=== PATIENT | female | born 2000 | race Caucasian/White ===

== ENCOUNTER 2023-12-16 12:47 | Emergency (ER) | payer OTHER, BC, SELFPAY ==
[2023-12-16 13:06] VITALS: BP 148/79; PULSE 102; RESP 16; TEMP 37; O2SAT 100; BMI 21.3
--- NOTE | 2023-12-16 13:07 | ED.ANIMALBIT ---
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 She states she had exposure to a known rabies positive count on Wednesday the . The CT was sent for testing on Wednesday, they found the results to be positive on Wednesday. She has had several rabies vaccine series and is here for the days 0 shot per the marketing education teacher recommendations. She denies any bites or scratches but she was handling the normal. She states the animal had neurologic symptoms of rabies MD complaint: possible animal exposure Onset (ago): day(s) Animal: cat Description of animal: appeared ill Mechanism: none known Context: other (Caring for the animal) Associated symptoms: none Related Data Patient tetanus UTD: Yes Allergies Allergy/AdvReac Type Severity Reaction Status Date / Time amoxicillin Allergy Hives Verified 12/16/23 13:08 doxycycline Allergy Facial Verified 12/16/23 13:08 Swelling Review of Systems Review of Systems: Yes all other systems are reviewed and are negative [facility] Past Medical History Medical History (Updated 12/16/23 @ 13:27 by OG Mata) Exposure to rabies Social History Social History Advance Directives: No Advance Directives Information Provided: Yes Do you have a plan to hurt others: No Plan Physical Exam ED Vital Signs: Vital Signs - 24 hr 12/16/23 13:06 Temperature 98.6 F Pulse Rate 102 H Respiratory Rate 16 Blood Pressure 148/79 H Pulse Oximetry 100 Oxygen Delivery Method Room Air BMI result Body Mass Index 21.3 Appearance: Alert. Oriented X3. No acute distress. HEENT: normal inspection CVS: Normal inspection of the chest Respiratory: No respiratory distress. Skin: Skin warm and dry. Normal skin color. Normal skin turgor. No rashes. Extremities: Normal inspection x4, no joint swelling Neuro: Oriented X 3. Grossly normal, nonfocal Medications Administered Discontinued Medications Generic Name Dose Route Start Last Admin Trade Name Freq PRN Reason Stop Dose Admin Rabies Vaccine Human Diploid Cell 1 ml 12/16/23 13:10 12/16/23 13:47 Rabies Vaccine, Human Diploid (Imovax) 1 Ml Vial IM 12/16/23 13:11 1 ml .ONCE ONE Administration Medical Decision Making Medical Decision Making MDM Narrative: 23-year-old female presents to the ER after she was exposed to rabies on 12/09. And psychosis weak and she was instructed to come to the ER for ?rabies booster.? Patient has been vaccinated several times this year for rabies. According to the CDC, after exposure and vaccinated person she needs a shot today and on day 3. Infusion center orders have been placed. Patient counseled. Stable for discharge Differential Diagnosis Differential Diagnoses: The differential diagnosis associated with the presentation includes Rabies exposure, minor scratch or bite wound Prescription Management I considered prescription management with: Antibiotic Critical Care Time Critical Care Time Critical Care Time: No Discharge Plan Discharge Clinical Impression: Exposure to rabies Patient Disposition: Home, Self-Care Instructions: Rabies Vaccine (By injection) Additional Instructions: you are due to rabies vaccine on day 3 (12/18) go to the Infusion Center for this. they should be in contact with you to let you know if they do vaccines on the weekend or if you should go on wednesday follow up with your doctor as needed Print Language: Slovenian
[2023-12-16] MEDS: Rabies Vaccine, Human Diploid (Imovax) 1 ML VIAL IM (13:47)
[2023-12-16 14:01] VITALS: BP 148/79; PULSE 102; RESP 16; TEMP 37; O2SAT 100
== END 2023-12-16 14:01 | disposition home or self-care (01) ==
PROVIDERS: Emergency Provider Emergency Medicine
DX: Z20.3 Contact with and (suspected) exposure to rabies (principal); Z23 Encounter for immunization
CPT/HCPCS: 90471; 90675; 99282; 99284